=== PATIENT | male | born 1995 | race Caucasian/White ===

== ENCOUNTER 2024-04-08 04:40 | Emergency (ER) | payer MEDICAID ==
[~2024-04-08] VITALS: Ht 193 cm; Wt 109.1 kg
[2024-04-08 06:50] LABS: BASO % 0.6 % (0.0-2.0); EOS % 0.4 % (0.0-4.0); GRAN # 3.6 K/mm3 (1.4-6.5); GRAN % 66.6 % (42.2-75.2); HEMATOCRIT 43.3 % (42.0-52.0); HEMOGLOBIN 14.9 g/dl (13.5-18.0); LYMPH # 1.4 K/mm3 (1.2-3.4); LYMPH % 25.3 % (20.0-51.0); MEAN CELL VOLUME 85 fl (80.0-100.0); MEAN CORPUSCULAR HEMOGLOBIN 29 pg (27-31); MEAN CORPUSCULAR HGB CONC 34 g/dl (33.0-37.0); MEAN PLATELET VOLUME 9.5 fl (7.4-10.4); MONO # 0.4 K/mm3 (0.1-0.6); MONO % 6.7 % (1.7-9.3); PLATELET COUNT 173 K/mm3 (130-400); RED BLOOD COUNT 5.09 M/mm3 (4.20-5.60); REDCELL DISTRIBUTION WIDTH-CV 12.1 % (11.5-14.5)
[2024-04-08 07:09] LABS: ALANINE AMINOTRANSFERASE 24 U/L (0-55); ALBUMIN 4.5 g/dL (3.5-5.0); ALKALINE PHOSPHATASE 53 U/L (40-150); ANION GAP 10 mmol/L (7-16); AST,SGOT 23 U/L (5-34); BILIRUBIN,TOTAL 0.7 mg/dL (0.2-1.2); BLOOD UREA NITROGEN 15 mg/dL (9-21); CALCIUM 9.5 mg/dL (8.4-10.2); CHLORIDE 105 mEq/L (98-107); CREATININE, serum 0.87 mg/dL (0.72-1.25); GLUCOSE 93 mg/dL (70-99); SODIUM 140 mEq/L (136-145); TOTAL PROTEIN 7.1 g/dl (6.2-8.1)
[2024-04-08 07:10] LABS: SALICYLATE < 5.0 mg/dL (15.0-30.0)
[2024-04-08 07:11] LABS: ALCOHOL(ethanol),MEDICAL < 10 mg/dL (0-10)
[2024-04-08 07:28] LABS: COLLECTION METHOD CLEAN CATCH
[2024-04-08 07:46] LABS: TRICYCLIC ANTIDEPRESS URINE NEGATIVE (NEGATIVE)
[2024-04-08 07:47] LABS: URINE APPEARANCE CLEAR (CLEAR/HAZY); URINE COLOR YELLOW (YELLOW); URINE GLUCOSE NEGATIVE (NEGATIVE); URINE PROTEIN(semi-quant) NEGATIVE (BEGATIVE)
[2024-04-08 07:48] LABS: URINE BLOOD NEGATIVE (NEGATIVE); URINE KETONE NEGATIVE (NEGATIVE); URINE NITRATE NEGATIVE (NEGATIVE); URINE UROBILINOGEN 0.2 E.U/dL (0.2-1.0)
[2024-04-08] MEDS ORDERED: OLANZapine 10 MG Orally-Disinteg TAB PO ONE (18:15)
[2024-04-09] MEDS ORDERED: OLANZapine 5 MG TAB PO ONE (22:00)
[2024-04-10] MEDS ORDERED: OLANZapine 10 MG,Water For Injection,Sterile 2 ML IM ONE (17:00)
[2024-04-11 13:06] VITALS: O2SAT 98
--- NOTE | 2024-04-13 06:59 | NUR ---
TOOK OVER PT OBSERVATION AT THIS TIME.
--- NOTE | 2024-04-13 09:35 | NUR ---
PT UP TO BATHROOM VOIDED AND RETURNED TO BED.
[2024-04-14 15:09] VITALS: BP 113/65; PULSE 60; TEMP 98.7
== END 2024-04-14 15:09 ==
LOC: COL.ER 04:40
PROVIDERS: Emergency Medicine
DX: F20.9 Schizophrenia, unspecified (principal)
CPT/HCPCS: G0463

== ENCOUNTER 2024-05-07 20:50 | Emergency (ER) | payer MEDICAID ==
[~2024-05-07] VITALS: Ht 193 cm; Wt 90.9 kg
[2024-05-07 21:04] VITALS: TEMP 98.8
[2024-05-07 23:35] VITALS: BP 118/76; PULSE 80
== END 2024-05-07 23:35 | disposition home or self-care (01) ==
LOC: COL.ER 20:50
DX: F20.9 Schizophrenia, unspecified (principal); Z59.00 Homelessness unspecified

== ENCOUNTER 2024-05-13 00:21 | Emergency (ER) | payer MEDICAID ==
[~2024-05-13] VITALS: Ht 193 cm; Wt 104.5 kg
[2024-05-13 00:38] VITALS: TEMP 97.6
[2024-05-13 01:12] LABS: COLLECTION METHOD CLEAN CATCH
[2024-05-13 01:16] LABS: URINE APPEARANCE CLEAR (CLEAR/HAZY); URINE BLOOD NEGATIVE (NEGATIVE); URINE COLOR YELLOW (YELLOW); URINE GLUCOSE NEGATIVE (NEGATIVE); URINE KETONE NEGATIVE (NEGATIVE); URINE NITRATE NEGATIVE (NEGATIVE); URINE PROTEIN(semi-quant) NEGATIVE (NEGATIVE); URINE UROBILINOGEN 0.2 E.U/dL (0.2-1.0)
[2024-05-13 01:25] LABS: BASO % 0.4 % (0.0-2.0); EOS % 0.3 % (0.0-4.0); GRAN # 5.2 K/mm3 (1.4-6.5); GRAN % 73.8 % (42.2-75.2); HEMATOCRIT 41.3 % (42.0-52.0); HEMOGLOBIN 14.8 g/dl (13.5-18.0); LYMPH # 1.4 K/mm3 (1.2-3.4); LYMPH % 19.9 % (20.0-51.0); MEAN CELL VOLUME 83 fl (80.0-100.0); MEAN CORPUSCULAR HEMOGLOBIN 30 pg (27-31); MEAN CORPUSCULAR HGB CONC 36 g/dl (33.0-37.0); MEAN PLATELET VOLUME 9.3 fl (7.4-10.4); MONO # 0.4 K/mm3 (0.1-0.6); MONO % 5.2 % (1.7-9.3); PLATELET COUNT 198 K/mm3 (130-400); RED BLOOD COUNT 4.96 M/mm3 (4.20-5.60); REDCELL DISTRIBUTION WIDTH-CV 12.3 % (11.5-14.5)
[2024-05-13 01:27] LABS: TRICYCLIC ANTIDEPRESS URINE NEGATIVE (NEGATIVE)
[2024-05-13 01:44] LABS: ALANINE AMINOTRANSFERASE 23 U/L (0-55); ALBUMIN 4.5 g/dL (3.5-5.0); ALKALINE PHOSPHATASE 53 U/L (40-150); AST,SGOT 19 U/L (5-34); BILIRUBIN,TOTAL 0.7 mg/dL (0.2-1.2); BLOOD UREA NITROGEN 12 mg/dL (9-21); CALCIUM 9.1 mg/dL (8.4-10.2); CREATININE, serum 0.84 mg/dL (0.72-1.25); GLUCOSE 105 mg/dL (70-99); TOTAL PROTEIN 6.3 g/dl (6.2-8.1)
[2024-05-13 01:45] LABS: ALCOHOL(ethanol),MEDICAL < 10 mg/dL (0-10)
[2024-05-13 01:56] LABS: ANION GAP 12 mmol/L (7-16); CHLORIDE 106 mEq/L (98-107); POTASSIUM 3.5 mEq/L (3.5-4.5); SODIUM 140 mEq/L (136-145)
[2024-05-13 01:57] LABS: SALICYLATE < 5.0 mg/dL (15.0-30.0)
[2024-05-13] MEDS ORDERED: Acetaminophen 500 MG TAB PO ONE (02:15)
[2024-05-13 03:55] VITALS: BP 124/70; PULSE 64
== END 2024-05-13 03:55 | disposition home or self-care (01) ==
LOC: COL.ER 00:21
PROVIDERS: Emergency Medicine
DX: R45.851 Suicidal ideations (principal); Z59.00 Homelessness unspecified

== ENCOUNTER 2024-06-08 01:04 | Emergency (ER) | payer MEDICAID ==
[~2024-06-08] VITALS: Ht 193 cm; Wt 90.9 kg
[2024-06-08 01:53] LABS: BASO # 0.1 K/mm3 (0.0-0.2); BASO % 0.7 % (0.0-2.0); EOS % 0.1 % (0.0-4.0); GRAN # 4.5 K/mm3 (1.4-6.5); GRAN % 67.1 % (42.2-75.2); HEMATOCRIT 41.8 % (42.0-52.0); HEMOGLOBIN 14.4 g/dl (13.5-18.0); LYMPH # 1.7 K/mm3 (1.2-3.4); MEAN CELL VOLUME 87 fl (80.0-100.0); MEAN CORPUSCULAR HEMOGLOBIN 30 pg (27-31); MEAN CORPUSCULAR HGB CONC 34 g/dl (33.0-37.0); MEAN PLATELET VOLUME 9.5 fl (7.4-10.4); MONO # 0.5 K/mm3 (0.1-0.6); MONO % 6.8 % (1.7-9.3); PLATELET COUNT 191 K/mm3 (130-400); REDCELL DISTRIBUTION WIDTH-CV 12.2 % (11.5-14.5)
[2024-06-08 02:12] LABS: ALANINE AMINOTRANSFERASE 25 U/L (0-55); ALBUMIN 4.4 g/dL (3.5-5.0); ALKALINE PHOSPHATASE 46 U/L (40-150); AST,SGOT 20 U/L (5-34); BILIRUBIN,TOTAL 0.6 mg/dL (0.2-1.2); BLOOD UREA NITROGEN 13 mg/dL (9-21); CALCIUM 9.6 mg/dL (8.4-10.2); CREATININE, serum 1.52 mg/dL (0.72-1.25); GLUCOSE 79 mg/dL (70-99); TOTAL PROTEIN 6.8 g/dl (6.2-8.1)
[2024-06-08 02:17] LABS: ALCOHOL(ethanol),MEDICAL < 10 mg/dL (0-10); SALICYLATE < 5.0 mg/dL (15.0-30.0)
[2024-06-08 02:24] LABS: CHLORIDE 106 mEq/L (98-107); POTASSIUM 3.6 mEq/L (3.5-4.5); SODIUM 141 mEq/L (136-145)
[2024-06-08 02:25] LABS: ANION GAP 11 mmol/L (7-16)
[2024-06-08 02:27] LABS: COLLECTION METHOD CLEAN CATCH
[2024-06-08 02:32] LABS: PH 5.5 (5.0-8.5); URINE APPEARANCE CLEAR (CLEAR/HAZY); URINE BLOOD NEGATIVE (NEGATIVE); URINE COLOR YELLOW (YELLOW); URINE GLUCOSE NEGATIVE (NEGATIVE); URINE KETONE NEGATIVE (NEGATIVE); URINE NITRATE NEGATIVE (NEGATIVE); URINE PROTEIN(semi-quant) NEGATIVE (NEGATIVE)
[2024-06-08 02:40] LABS: TRICYCLIC ANTIDEPRESS URINE NEGATIVE (NEGATIVE)
--- NOTE | 2024-06-08 11:08 | NUR ---
community organization worker was notified patient is currently involuntary for psych placement but is worried that he will lose his housing spot. ER Charge nurse, Tatyana, did not know where for housing he was talking about and patient was asleep. IRIS reviewed patient's notes and noticed patient mentioned that [employer] was assisting him with housing. IRIS contacted [employer] and spoke with Irvin. Irvin explained patient has a disability case manager through [employer], P# [phone]. Irvin also explained patient has been working with the APS worker, Suze. Irvin explained patient and Vasu filled out an application for emergency homeless housing last week. IRIS contacted [employer], Jorge, whom expressed they did fill out the application last week and it could take up to 2-3 weeks to hear back as the [facility] [employer] has to review and process it. Patient would need to pay 20% of the rent after they find an apartment that could take the emergency voucher. Patient does not have a guardian but Vasu reports patient would benefit from having a guardian. Jorge expressed Suze has been involved with this. IRIS attempted to contact Suze, no answer. IRIS notified ER charge nurse, Tatyana, that [employer] reported it would be 2-3 weeks before he would have his application processed and could be longer after that to find the apartment. Tatyana will notify patient of the housing process.
--- NOTE | 2024-06-09 12:36 | NUR ---
electronic instrument trades worker was notified patient also has court in [facility]. IRIS sent requested letter to attorney general's office stating patient is currently in the hospital and does not currently have a discharge date. IRIS attempted to call AMANDA Rios worker, twice, no answer. IRIS left a voicemail. IRIS will continue to follow up.
[2024-06-09 13:34] VITALS: BP 131/91; PULSE 63; TEMP 98.8
--- NOTE | 2024-06-09 14:50 | NUR ---
mastic worker provided patient with the tablet for his prosecuting attorney meeting. IRIS changed the meeting to the court hearing at 2 pm. Patient requested door be shut. At end of hearing, patient came out and stated "I am free to leave." IRIS explained she would need to check with nursing on this. IRIS met with patient's nurse whom reported they would need clarification on this. IRIS contacted [facility] whom reported their appeals representative noted that patient was to go to inpatient once placement was found. IRIS was notified by ER charge nurse, Tatyana, whom spoke with the [facility] [employer] Software Engineer that verified patient is only to leave to go to an inpatient facility. Patient's nurse reported that she would notify patient of this information. IRIS was notified patient has court in [facility] on July 07 at 10 am. IRIS placed this information on patient's file.
--- NOTE | 2024-06-09 15:13 | NUR ---
scrap worker was contacted by [facility] APS worker, whom notified the nephrology social worker she had been working with the patient and last she spoke with him was on at [facility]. Blanca reported she obtained a payee for this patient to pay for his bills and manage his funds. Blanca reported she sent a form to [employer] to fill out for patient to be placed on the list for a guardian. Blanca is aware patient will be transferred to [facility] today. IRIS explained she contacted her to ensure she knew he was here and that he would be discharging to [facility]. IRIS explained she was also notified patient will have court in [facility] on July 07 at 10 am. Blanca stated she would put that on her calendar and try to remind him closer to the date.
--- NOTE | 2024-06-10 09:28 | NUR ---
Maura from the CDDO office calls this director social welfare and advised that she has deemed patient eligible for the developmental disability waiver and there are emergency funds available for him. Worker encouraged Maura to call [facility] and let them know this information as it will help with his discharge planning.
== END 2024-06-09 16:12 ==
LOC: COL.ER 01:04
PROVIDERS: Nurse Practitioner
DX: R45.851 Suicidal ideations (principal); F17.210 Nicotine dependence, cigarettes, uncomplicated